=== PATIENT | male | born 1970 | race Caucasian/White ===

== ENCOUNTER → 2018-08-13 | Outpatient (REF) | payer BC ==
[2018-08-13 16:04] LABS: FOLLICLE STIMULATING HORMONE 4.2 mIU/mL (1.0-12.0); LUTENIZING HORMONE 2.4 mIU/mL (0.6-12.1); PROLACTIN 6.4 ng/mL (3.5-19.4)
== END ==
LOC: LAB 10:10
PROVIDERS: Internal Medicine
DX: E23.0 Hypopituitarism (principal)